=== PATIENT | male | born 2000 | race Caucasian/White ===

== ENCOUNTER 2022-04-05 10:07 | Outpatient (CLI) | payer OTHER, SELFPAY ==
--- NOTE | ~2022-04-05 | XR_ITS ---
EXAMINATION: XR fl inj hip LT for MR/CT DATE: 04/05/2022 11:14 INDICATION: Left groin pain. TECHNIQUE: A time-out was performed to verify the patient's name, date of , and procedure to b e performed. The procedure including the risks, benefits, and alternatives was discussed with the pat ient. Risks discussed included bleeding and infection. The patient understood the risks and agreed to proceed. The skin overlying the left hip joint was prepped and draped in usual sterile fashion. Ane sthetic was administered with 1% lidocaine subcutaneously. A 22 G needle was advanced under fluorosc opic guidance into the joint. Subsequently, injectate consisting of 9 mL of 1:200 Multihance, 1:4 1% lidocaine, and 1:4 Omnipaque 240 was instilled. The needle was removed and the entry site was clean ed and dressed. There were no immediate complications. Fluoroscopy exposure time was 0.0 minutes. Th e total number of images was 2. FINDINGS: Real-time fluoroscopy demonstrates the needle and contrast in the left hip joint. IMPRESSION: 1. Successful left hip joint injection of contrast for subsequent MR arthrography. Reviewed, dictated and finalized at location A. SORTER IMPRESSION: 1. Successful left hip joint injection of contrast for subsequent MR arthrograp .
--- NOTE | ~2022-04-05 | MR_ITS ---
EXAMINATION: MR hip LT w con DATE: 04/05/2022 11:45 INDICATION: Left hip pain. TECHNIQUE: Magnetic resonance imaging (MRI) of the left hip was performed without intravenous contras t after intra-articular injection of contrast (MR arthrogram). COMPARISON: None FINDINGS: Bones/cartilage: There is 10 degrees levoscoliosis of the visualized portion of lower lumbar spine. No fracture. There is decreased femoral head/neck offset anterosuperiorly, which may be seen with femoral acetabular im pingement. The left hip joint cartilage is normal. Labrum: There is a tear of the left acetabular labrum anteriorly. Fluid: The left hip joint is well distended by contrast. There is no right hip joint effusion. There is mild right trochanteric bursitis. Soft tissues: The musculature is normal. The gluteal tendons are normal. The hamstring tendon origins are normal. T he iliopsoas tendons are normal. There is no sports hernia. IMPRESSION: 1. Tear of left acetabular labrum anteriorly. 2. Decreased femoral head/neck offset bilaterally, which may be seen with femoral acetabular impingem ent. Reviewed, dictated and finalized at location A. [employer] IMPRESSION: 1. Tear of left acetabular labrum anteriorly. 2. Decreased femoral head/neck offset bilaterally, which may be seen with femor al acetabular impingement.
== END 2022-04-05 10:08 | disposition home or self-care (01) ==
LOC: ANHIMG 10:19
PROVIDERS: Visit Provider Orthopaedic Surgery
DX: S73.192A Other sprain of left hip, initial encounter (principal); X58.XXXA Exposure to other specified factors, initial encounter
CPT/HCPCS: 20610; 73722; 77002; A9577; Q9966